=== PATIENT | male | born 1955 | race Caucasian/White ===

== ENCOUNTER → 2019-12-11 | Outpatient (CLI) | payer OTHER ==
--- NOTE | 2019-12-12 15:00 | XCELERA REPORT ---
[address] [address] Transthoracic Echocardiogram Report Name: MADISON MORALES Age: 64 yrs Gender: Male : 1955 Patient Status: Outpatient Patient Location: Study Date: 12/11/2019 11:59 AM Height: 74 in Weight: 240 lb BSA: 2.3 m2 Procedure: A two-dimensional transthoracic echocardiogram with color flow and Doppler was performed. The study was technically limited with all images being suboptimal in quality. Reason For Study: CHF History: CHF. Ordering Physician: JOANNE AL Performed By: Pepper Leblnac Interpretation Summary The left ventricle is normal in size. There is normal left ventricular wall thickness. LV EF is 55% Doppler measurements suggest pseudonormalized left ventricular relaxation, which is associated with grade II/IV or mild to moderate diastolic dysfunction Left ventricular systolic function is low normal. The left ventricular wall motion is normal. There is no thrombus. No ASD,VSD , or PFO seen. The right ventricle is normal in size and function. The right atrium is normal. The left atrial size is normal. There is no evidence of mitral valve prolapse. There is no vegetation seen on the mitral valve. There is no mitral valve stenosis. There is a trace amount of mitral regurgitation There is no aortic valvular vegetation. There is no aortic valve stenosis There is no LVOT obstruction. No aortic regurgitation is present. There is no tricuspid stenosis. There is a trace amount of tricuspid regurgitation There is mild pulmonary hypertension by echo RVSP is 366 to 41 mm of Hg , with RA mean of 5 to 10. There is no pulmonic valvular stenosis. There is a trace amount of pulmonic regurgitation The aortic root is normal size. The inferior vena cava appeared normal and decreased > 50% with respiration (RAP 5-10 mmHg) There is no pericardial effusion. MMode/2D Measurements & Calculations RVDd: 2.5 cm LVIDd: 6.5 cm FS: 29.4 % Ao root diam: 3.3 cm IVSd: 1.1 cm LVIDs: 4.6 cm EDV(Teich): 216.6 ml Ao root area: 8.3 cm2 LVPWd: 1.00 cm ESV(Teich): 97.0 ml EF(Teich): 55.2 % Doppler Measurements & Calculations MV E max alfie: MV dec slope: Ao V2 max: LV V1 max P.5 cm/sec 234.7 cm/sec2 123.9 cm/sec 3.0 mmHg MV A max alfie: MV dec time: 0.18 secAo max P.1 mmHgLV V1 max: 88.2 cm/sec 87.2 cm/sec MV E/A: 0.48 PA V2 max: PI end-d alfie: TR max alfie: 79.5 cm/sec 120.8 cm/sec 279.9 cm/sec PA max P.5 mmHg TR max P.3 mmHg Left Ventricle The left ventricle is normal in size. There is normal left ventricular wall thickness. LV EF is 55%. Left ventricular systolic function is low normal. Doppler measurements suggest pseudonormalized left ventricular relaxation, which is associated with grade II/IV or mild to moderate diastolic dysfunction. The left ventricular wall motion is normal. There is no thrombus. No ASD,VSD , or PFO seen. Right Ventricle The right ventricle is normal in size and function. Atria The right atrium is normal. The left atrial size is normal. Mitral Valve There is no evidence of mitral valve prolapse. There is no vegetation seen on the mitral valve. There is no mitral valve stenosis. There is a trace amount of mitral regurgitation. Aortic Valve There is no aortic valvular vegetation. There is no aortic valve stenosis. There is no LVOT obstruction. No aortic regurgitation is present. Tricuspid Valve There is no tricuspid stenosis. There is a trace amount of tricuspid regurgitation. There is mild pulmonary hypertension by echo. RVSP is 366 to 41 mm of Hg , with RA mean of 5 to 10. Pulmonic Valve There is no pulmonic valvular stenosis. There is a trace amount of pulmonic regurgitation. Great Vessels The aortic root is normal size. The inferior vena cava appeared normal and decreased > 50% with respiration (RAP 5-10 mmHg). Effusions There is no pericardial effusion. : JOANNE AL Lakshmi
== END ==
LOC: SP 12:48
DX: I50.9 Heart failure, unspecified (principal); E11.9 Type 2 diabetes mellitus without complications; M19.012 Primary osteoarthritis, left shoulder; M19.011 Primary osteoarthritis, right shoulder; J44.9 Chronic obstructive pulmonary disease, unspecified
CPT/HCPCS: 93306